=== PATIENT | male | born 1975 | race Caucasian/White ===

== ENCOUNTER → 2016-03-17 | Outpatient (CLI) | payer OTHER ==
[2016-03-17 09:44] LABS: ASPARTATE AMINO TRANSFERASE 29 IU/L (21-57); BILIRUBIN,TOTAL 0.7 mg/dL (0.3-1.2); BLOOD UREA NITROGEN 20 mg/dL (7-22); BUN/CREATININE RATIO 16.66 (6-20); CALCIUM 10.5 mg/dL (8.7-10.7); CHLORIDE 102 meq/L (98-112); CREATININE 1.2 mg/dL (0.70-1.50); EST GLOMERULAR FILTRATION > 60 (>60 ml/min/1.73m(2)); GLUCOSE 101 mg/dL (78-110); POTASSIUM 3.9 meq/L (3.8-5.2); SODIUM 137 meq/L (135-145); TOTAL PROTEIN 7.9 g/dL (6.1-8.0)
[2016-03-17 10:04] LABS: LDL CHOLESTEROL,CALCULATED 142.8 mg/dL
== END ==
LOC: LAB 09:22
PROVIDERS: ATTEND Internal Medicine
DX: E78.5 Hyperlipidemia, unspecified (principal); E03.9 Hypothyroidism, unspecified; F31.9 Bipolar disorder, unspecified; F17.210 Nicotine dependence, cigarettes, uncomplicated
CPT/HCPCS: 36415; 80053; 80061; 80178; 82550; 84443

== ENCOUNTER 2016-09-12 19:28 | Emergency (ER) | payer SELFPAY ==
[2016-09-12] MEDS ORDERED: Sodium Chloride 0.9% 1,000 ML PRIMARY IV ONE (20:01)
[2016-09-12] MEDS ORDERED: LORazepam 2 MG/1 ML VIAL IVP ONE (20:01)
[2016-09-12] MEDS ORDERED: ONDANSETRON 4 MG/2 ML VIAL IVP ONE (20:01)
[2016-09-12] MEDS ORDERED: ONDANSETRON 4 MG/2 ML VIAL ONE (20:03)
[2016-09-12] MEDS ORDERED: LORazepam 2 MG/1 ML VIAL ONE (20:04)
--- NOTE | 2016-09-12 20:07 | PDOC ---
Gen Adult / Medical Screen HPI - General Chief Complaint: Psychiatric Complaint Stated Complaint: ANIXETY Date Seen by Provider: 09/12/16 Time Seen by Provider: 20:02 Source: POSITIVE: Patient Exam Limitations: POSITIVE: No limitations Nurse's Notes Reviewed & Considered: Yes - Indicators Temperature Between 95 and 101 Degrees: Yes Respirations Between 12 and 20: Yes Blood Pressure Between 100-165 (sys) and 60-100 (singh): Yes Pulse Range Between 60-105 (100 for age > 60 years): Yes Severe Pain (Greater than 5/10 Reported): No Chest or Abdominal Pain: No Inability to Walk: No Pt Reports Active High Risk Cond. (TB/Hepatitis/HIV/Chemo): No Abnormal Mental Status: No - History of Present Illness Initial Comments: This is a 40-year-old anxious male who comes in stating he feels like his blood pressure is out of control, very anxious, with sweating. Patient here in [place] on his weeks off from his job in [place]. 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 Now with increasing anxiety, sweating, feeling of palpitations in his chest, and shortness of breath. Body Location Affected: REPORTS: Chest Timing: REPORTS: Gradual, Getting Worse Duration: Unknown Similar Symptoms Previously: Yes Recent Care Received: REPORTS: Denies Any Prior Injuries Related to Current Complaint?: No - Patient Home Medications Home Medications: Home Medications Levothyroxine Sodium 1 tab PO DAILY #30 tab 03/18/16 [place] Carbonate 2 cap PO TID #180 cap 03/18/16 Quetiapine Fumarate [Seroquel] 2 tab PO QHS #60 tab 03/18/16 Cyclobenzaprine HCl 1 tab PO TID PRN #30 tab 04/06/16 Hydrocodone/Acetaminophen [Hydrocodon-Acetaminophen 5-325] 1 tab PO Q4-6HRSPRN PRN #30 tab 04/06/16 Sertraline HCl [Zoloft] 2 tab ORAL QD #60 tab 07/28/16 Lorazepam 1 tab ORAL BID PRN #60 tab 09/09/16 - Patient Allergies Allergies/Adverse Reactions: Allergies Allergy/AdvReac Type Severity Reaction Status Date / Time nortriptyline Allergy Severe hyperventilate, Unverified 09/12/16 21:12 anxious amitriptyline HCl Allergy Intermediate NOT Unverified 09/12/16 21:12 [From Elavil] APPLICABLE fish derived Allergy Intermediate HIVES Unverified 09/12/16 21:12 bupropion HCl Allergy Unknown NOT Unverified 09/12/16 21:12 [From Wellbutrin] APPLICABLE diclofenac AdvReac Intermediate anxiety, Unverified 09/12/16 21:12 nervousness Past Medical History - heen HEENT History: Denies History Cardiovascular History: Denies History Respiratory History: Denies History Gastrointestinal History: GERD Genitourinary History: Denies History Endocrine History: Hypothyroidism Musculoskeletal History: Back Pain Prosthesis or Implant: No Neurological History: Denies History Blood Disorders: Denies History Psychiatric History: Anxiety Disorders, Bi Polar Disorder, Depression, Other ( please comment), Schizophrenia Additional Psychiatric History: AGORAPHOBIA History of Sexually Transmitted Diseases: No Cancer History: Denies History History of MDRO: No History of Other Communicable Diseases: No Alcohol Use: Heavy Substance Use Type: None, Other (please comment) Previous Surgical History: No Anesthesia Reactions: No Malignant Hyperthermia: No Significant Family History: No pertinent family hx ROS - Limitations ROS Limitations: No Limitations Constitution: REPORTS: Diaphoresis Cardiovascular: REPORTS: Chest Pain, Heart Palpitations Respiratory: REPORTS: Shortness Of Breath Neurological: REPORTS: Denies Neuro Symptoms Gastrointestinal: REPORTS: Denies GI Symptoms Endocrine: REPORTS: Denies Symptoms Musculoskeletal: REPORTS: Denies MS Symptoms Genitourinary: REPORTS: Denies Symptoms Eyes: REPORTS: Denies Symptoms ENT: REPORTS: Denies Symptoms Skin: REPORTS: Denies Skin Symptoms Lympathic: REPORTS: Denies Lympathic Symptoms Immunologic: POSITIVE: Denies Symptoms Psychiatric: POSITIVE: Anxiety Gen Adult/Medical Screen Exam - General Appearance General Appearance: POSITIVE: Alert, Cooperative, No Evidence of Trauma, Moderate Distress - HEENT HEENT: POSITIVE: Head Inspection Nml, Eyes Inspection Nml, Ears Inspection Nml, Nose Inspection Nml, Oral/Dental Inspect. Nml, Pharynx Inspect. Nml, PERRL, EOMI - Pupils Pupil Size: 4 mm: Bilateral - Neck Neck: POSITIVE: Normal Inspection, Thyroid Normal - Respiratory Respiratory: POSITIVE: No Respiratory Distress, Breath Sounds Normal, Chest Non- Tender - Cardiovascular Cardiovascular: POSITIVE: Regular Rate & Rhythm, No Murmur, No Gallop, PMI Normal - Abdomen Abdomen: Soft: (All Quadrants), Normal Bowel Sounds: (All Quadrants), Denies Tenderness: (All Quadrants), No Splenomegaly: (All Quadrants), No Hepatomegaly: (All Quadrants), No Guarding: (All Quadrants), No Rebound: (All Quadrants), No Palpable Pulse: (All Quadrants), No Palpabale Mass: (All Quadrants), No Distention: (All Quadrants), No Rigidity: (All Quadrants) - Back Back: POSITIVE: Normal Inspection - Neurological / Psychological Mental Status: POSITIVE: Other (Very anxious) Orientation: POSITIVE: Oriented x 3 - Skin Skin: POSITIVE: Normal Color, Warm, Dry, No Rash - Extremities Extremity: Non-Tender: (All Extremities), Normal ROM: (All Extremities), Normal Inspection: (All Extremities), Pelvis Stable: (All Extremities) Procedures - Laceration/Wound Repair Did patient have a laceration repair: No Gen Adlt/Medical Scrn Progress - Results Reviewed by me Xrays/CTs/US Reviewed by me: Yes Discussed with Radiologist: No Lab Results Reviewed: Yes Lab Results:: Laboratory Results 09/12/16 Range/Units 19:50 WBC 5.27 (4.8-10.8) 10^3/uL RBC 4.37 L (4.70-6.10) 10^6/uL Hgb 13.8 L (14.0-18.0) g/dL Hct 39.2 L (42.0-52.0) % MCV 89.7 (80-90) FL MCH 31.6 H (27-31) PG MCHC 35.2 (33-37) g/dL RDW Std Deviation 41.4 (39-50) fL RDW Coeff of [place] 12.8 (11.5-14.5) % Plt Count 233 (140-350) 10*3/uL MPV 9.7 (7.4-12.2) FL Immature Gran % (Auto) 0.1 (0-5) % Neut % (Auto) 49.4 L (50-80) % Lymph % (Auto) 37.2 (10-50) % [place] % (Auto) 10.1 (5-15) % Eos % (Auto) 2.7 (0-8) % Baso % (Auto) 0.4 (0-1) % Immature Gran # (Auto) 0.01 10*3/UL Neut # (Auto) 2.61 10*3/UL Lymph # (Auto) 1.96 10*3/uL [place] # (Auto) 0.53 (0.3-0.8) 10*3/UL Eos # (Auto) 0.14 10*3/UL Baso # (Auto) 0.02 10*3/UL WBC Morphology Comment Normal morphology (NORM) Plt Morphology Comment Normal morphology (NORM) RBC Morph Comment Normal morphology (NORM) Sodium 134 L (135-145) meq/L Potassium 3.6 L (3.8-5.2) meq/L Chloride 105 (98-112) meq/L Carbon Dioxide 18 L (23-33) meq/L Anion Gap 11 (5-20) BUN 17 (7-22) mg/dL Creatinine 1.2 (0.70-1.50) mg/dL Estimated GFR > 60 (>60 ml/min/1.73m(2)) BUN/Creatinine Ratio 14.16 (6-20) Glucose 92 (78-110) mg/dL Calculated Osmolality 279.0 (267-292) mOsm/kg Calcium 9.7 (8.7-10.7) mg/dL Magnesium 2.0 (1.6-2.4) mg/dL Total Bilirubin 0.6 (0.3-1.2) mg/dL AST 41 (21-57) IU/L ALT 35 (21-72) IU/L Alkaline Phosphatase 72 (38-126) IU/L Total Protein 7.6 (6.1-8.0) g/dL Albumin 4.4 (3.5-4.8) g/dL Globulin 3.2 (2.50-4.10) g/dL Albumin/Globulin Ratio 1.30 (1.3-2.0) mg/g TSH 2.54 (0.2700-4.2000) uIU/mL - Patient's Progress Pain Medication Addressed: POSITIVE: Not Applicable Re-Examine Time: 22:03 Status: POSITIVE: Improved MDM / ED Course: Patient was examined, an IV started, blood drawn and sent to the lab for studies. EKG was obtained interpreted by me showing sinus rhythm with no ST elevations. Findings: Chest x-ray was normal chest radiograph. Laboratory findings including CBC CMP unremarkable. Assessment: Anxiety presently out of medications. Plan: Discharge home follow up with primary care physician for renewal of his psych medications. - Consult Counseled: POSITIVE: Patient, RE: Lab Results, RE: Radiology Results, RE: DX, RE : Need for F/U Patient Care Time - Estimated PCT Patient Care Time (In Minutes): 30 Vital Signs - Recent Vital Signs Vital Signs: Vital Signs (Last 8 hours) Temp Pulse Resp BP Pulse Ox 09/12/16 19:30 97.3 F 65 28 H 139/99 98 - VS Reviewed Vital Signs Reviewed: Yes Discharge Clinical Impression: Anxiety Discharge Disposition: Discharged to Home Condition: Good Patient Instructions Given at Discharge: Anxiety (ED)
[2016-09-12 20:13] LABS: HEMATOCRIT 39.2 % (42.0-52.0); HEMOGLOBIN 13.8 g/dL (14.0-18.0); MEAN CORPUSCULAR HEMOGLOBIN 31.6 PG (27-31); MEAN CORPUSCULAR HGB CONC 35.2 g/dL (33-37); MEAN CORPUSCULAR VOLUME 89.7 FL (80-90); MEAN PLATELET VOLUME 9.7 FL (7.4-12.2); RED BLOOD COUNT 4.37 10^6/uL (4.70-6.10)
[2016-09-12 20:14] LABS: BASOPHILS # (AUTO) 0.02 10*3/UL; BASOPHILS % (AUTO) 0.4 % (0-1); BLOOD UREA NITROGEN 17 mg/dL (7-22); BUN/CREATININE RATIO 14.16 (6-20); CALCIUM 9.7 mg/dL (8.7-10.7); EOSINOPHILS # (AUTO) 0.14 10*3/UL; EOSINOPHILS % (AUTO) 2.7 % (0-8); EST GLOMERULAR FILTRATION > 60 (>60 ml/min/1.73m(2)); LYMPHOCYTES # (AUTO) 1.96 10*3/uL; MONOCYTES # (AUTO) 0.53 10*3/UL (0.3-0.8); MONOCYTES % (AUTO) 10.1 % (5-15); NEUTROPHILS # (AUTO) 2.61 10*3/UL; NEUTROPHILS % (AUTO) 49.4 % (50-80); PLATELET MORPHOLOGY COMMENT NORMAL MORPHOLOGY (NORM); RBC MORPHOLOGY COMMENT NORMAL MORPHOLOGY (NORM); SERUM ALBUMIN 4.4 g/dL (3.5-4.8); WBC MORPHOLOGY COMMENT NORMAL MORPHOLOGY (NORM)
[2016-09-12 21:09] VITALS: RESP 28; TEMP 97.3
--- NOTE | 2016-09-12 21:22 | EKG ---
[address] [address] Measurements Intervals [place] Rate: 61 P: 50 MT: 199 QRS: 41 QRSD: 121 T: 22 QT: 414 QTc: 417 Interpretive Statements SINUS RHYTHM MODERATE INTRAVENTRICULAR CONDUCTION DELAY [110+ ms QRS DURATION] INTERPRETATION BASED ON A DEFAULT AGE OF 40 YEARS No previous ECG available for comparison Electronically Signed On 09-13-16 07:56:32 MDT by Watson Zendejas MD [email or web address]
--- NOTE | 2016-09-13 06:57 | DI ---
PA /LATERAL CHEST X-RAY, 09/12/2016 9:21 PM : Clinical History: Right-sided chest pain Previous Exam: 08/21/2011. There is no acute soft tissue or bony abnormality. Heart size is normal. Lungs are clear. Mediastinal structures are normal. There are no pulmonary nodules. Reading: Normal chest x-ray. There has been no significant interval change.
== END 2016-09-12 22:37 | disposition home or self-care (01) ==
LOC: ER 19:28
DX: F41.9 Anxiety disorder, unspecified (principal); R07.9 Chest pain, unspecified; R00.2 Palpitations; R06.02 Shortness of breath
CPT/HCPCS: 71020; 80053; 80178; 83735; 84443; 85025; 93005; 93010; 96361; 96374; 96375; 99283 ×2; J2060; J2405; J7030

== ENCOUNTER → 2016-09-15 | Outpatient (CLI) | payer OTHER ==
[2016-09-15 08:23] LABS: BLOOD UREA NITROGEN 21 mg/dL (7-22); CALCIUM 9.8 mg/dL (8.7-10.7); EST GLOMERULAR FILTRATION > 60 (>60 ml/min/1.73m(2)); SERUM ALBUMIN 4.6 g/dL (3.5-4.8)
== END ==
LOC: LAB 07:40
PROVIDERS: ATTEND Internal Medicine
DX: E03.9 Hypothyroidism, unspecified (principal); D64.9 Anemia, unspecified; F31.9 Bipolar disorder, unspecified; F17.200 Nicotine dependence, unspecified, uncomplicated
CPT/HCPCS: 36415; 80053; 80178; 82728; 83540; 83550; 84443; G0463

== ENCOUNTER 2016-09-25 16:11 | Emergency (ER) | payer OTHER ==
[2016-09-25 17:23] VITALS: RESP 16; TEMP 97.9
--- NOTE | 2016-09-25 17:43 | PDOC ---
Foot / Ankle Injury - General Chief Complaint: Lower Extremity Problem/Injury Stated Complaint: twisted L ankle Date Seen by Provider: 09/25/16 Time Seen by Provider: 16:15 Source: POSITIVE: Patient Exam Limitations: POSITIVE: No limitations Nurse's Notes Reviewed & Considered: Yes - History of Present Illness Initial Comments: The patient is a 40-year-old male. About 20 minutes [employer] he jumped down 2 stairs and when he he landed he forced his left ankle into inversion. He complains of pain to his ankle, primarily the lateral aspect. He has swelling over the lateral and medial aspects of the ankle. He states he has not been able ambulate on his left foot since his injury. No sensory or motor symptoms. Have you received a tetanus shot in the past 10 years?: Yes Location: Left Ankle Timing: REPORTS: Abrupt Duration: 1/2 hour Severity: Moderate Quality: REPORTS: "Pain" Context: REPORTS: Twist Modifying Factors: REPORTS: Other (exacerbated by trying to bear weight on his left foot) Associated Symptoms: REPORTS: Swelling. DENIES: Tingling Distally, Numbness Distally, Snapping Sensation, Popping Sensation, Other Any Prior Injuries Related to Current Complaint?: No - Patient Allergies Allergies/Adverse Reactions: Allergies Allergy/AdvReac Type Severity Reaction Status Date / Time nortriptyline Allergy Severe hyperventilate, Verified 09/25/16 16:36 anxious amitriptyline HCl Allergy Intermediate NOT Verified 09/25/16 16:36 [From Elavil] APPLICABLE fish derived Allergy Intermediate HIVES Verified 09/25/16 16:36 bupropion HCl Allergy Unknown NOT Verified 09/25/16 16:36 [From Wellbutrin] APPLICABLE diclofenac AdvReac Intermediate anxiety, Verified 09/25/16 16:36 nervousness - Patient Home Medications Home Medications: Home Medications Levothyroxine Sodium 1 tab PO DAILY #30 tab 09/15/16 [place] Carbonate 2 cap PO TID #180 cap 09/15/16 Lorazepam 1 tab ORAL BID PRN #60 tab 09/15/16 Quetiapine Fumarate [Seroquel] 2 tab PO QHS #60 tab 09/15/16 Sertraline HCl [Zoloft] 2 tab ORAL QD #60 tab 09/15/16 HYDROcodone/APAP 10/325 Tab [[place] 10/325 Tab] 1 tab PO Q6H PRN #20 tab Past Medical History - heen HEENT History: Denies History Cardiovascular History: Denies History Respiratory History: Denies History Gastrointestinal History: GERD Genitourinary History: Denies History Endocrine History: Hypothyroidism Musculoskeletal History: Back Pain Prosthesis or Implant: No Neurological History: Denies History Blood Disorders: Denies History Psychiatric History: Anxiety Disorders, Bi Polar Disorder, Depression, Other ( please comment), Schizophrenia Additional Psychiatric History: AGORAPHOBIA History of Sexually Transmitted Diseases: No Cancer History: Denies History In Past Year Been Physically Harmed or Verbally Threatened: No History of MDRO: No History of Other Communicable Diseases: No Tobacco Use: Never Smoker Alcohol Use: Heavy Substance Use Type: None, Other (please comment) Previous Surgical History: No Anesthesia Reactions: No Malignant Hyperthermia: No Significant Family History: No pertinent family hx Past Medical History Reviewed: Reviewed - No Changes ROS - Limitations ROS Limitations: No Limitations Constitution: REPORTS: Denies Symptoms Cardiovascular: REPORTS: Denies Cardiac Symptoms Respiratory: REPORTS: Denies Resp Symptoms Neurological: REPORTS: Denies Neuro Symptoms Gastrointestinal: REPORTS: Denies GI Symptoms Endocrine: REPORTS: Denies Symptoms Musculoskeletal: REPORTS: Joint Pain (Left ankle), Lower Extremity Swelling ( Swelling to lateral and medial aspects of left ankle), Recent Injury (As above) Genitourinary: REPORTS: Denies Symptoms Eyes: REPORTS: Denies Symptoms ENT: REPORTS: Denies Symptoms Skin: REPORTS: Denies Skin Symptoms Lympathic: REPORTS: Denies Lympathic Symptoms Immunologic: POSITIVE: Denies Symptoms Psychiatric: POSITIVE: Denies Psych Symptoms Foot / Ankle Exam - General Appearance General Appearance: POSITIVE: Alert, Cooperative, No Acute Distress. NEGATIVE: No Evidence of Trauma - Extremities Foot: POSITIVE: Normal Inspection, Non-Tender Ankle: POSITIVE: Normal ROM, Stable, Soft-Tissue Tenderness, Bony Tenderness, Swelling, See Diagram. NEGATIVE: Ecchymosis, Limited ROM, Deformity, Ligamentous Instability Gait: POSITIVE: Unable to Bear Weight Neuro: POSITIVE: Sensation Normal, Motor Normal Vascular: POSITIVE: No Vascular Compromise, Full Pulses, Equal Pulses Tendons: POSITIVE: Tendon Function Normal Skin: POSITIVE: Warm, Dry - Neck / Back Neck / Back: Normal Inspection - Respiratory / CVS Respiratory / CVS: POSITIVE: Chest Non-Tender, No Respiratory Distress, Heart Sounds Normal, Regular Rate/Rhythm, Breath Sounds Normal Peripheral Pulses: Radial (R): 2+, Radial (L): 2+, Dorsalis-pedis (R): 2+, Dorsalis-pedis (L): 2+ Images - Lower Extremities Lower Extremities: 1 - Some swelling and discomfort/pain on palpation 2 - Swelling and discomfort on palpation Procedures - Splinting Time Splint Applied: 16:40 Location: Cam Walker left lower extremity Pre-Proc Neuro Vasc Exam: Normal Splint Type: CAM Walker, Crutches Splint Form: Short Extremity Applied By:: Nurse Post-Proc Neuro Vasc Exam: Normal Foot / Ankle Progress - Results Reviewed by me Pain Medication Addressed: POSITIVE: Yes (hydrocodone/APAP one every 6 hours as necessary) School/Work Release Addressed: POSITIVE: Not Applicable Xrays/CTs/US Reviewed by me: Yes Discussed with Radiologist: No Radiology Results: POSITIVE: Left, Ankle Radiology Findings: X-ray of left ankle shows no definite fractures or dislocations. There is edema bilaterally. There is a small calcification distal to the tip of the lateral malleolus which is well eburnated and probably does not represent a small avulsion fracture - Patient's Progress Re-Examine Time:: 16:41 Re-Examine Comment: Cam Walker placed and patient instructed in crutch walking. Some relief of pain with Cam Walker. Status: POSITIVE: Improved, Re-Examined - Consult Counseled: POSITIVE: Patient, RE: Radiology Results, RE: DX, RE: Need for F/U Patient Care Time - Estimated PCT Patient Care Time (In Minutes): 23 Vital Signs - Recent Vital Signs Vital Signs: Vital Signs (Last 8 hours) Temp Pulse Resp BP Pulse Ox 09/25/16 16:11 97.9 F 83 16 132/93 95 - VS Reviewed Vital Signs Reviewed: Yes Discharge Clinical Impression: Ankle pain, Sprain of ankle Discharge Disposition: Discharged to Home Prescriptions / Orders: HYDROcodone/APAP 10/325 Tab [[place] 10/325 Tab] 1 tab PO Q6H PRN #20 tab PRN Reason: Pain Patient Instructions Given at Discharge: Ankle Sprain (ED) Additional Instructions: I see no definite fractures on the x-ray of your ankle. I believe you have a significant sprain, although an occult fracture cannot be definitely ruled out. Please wear cam walker and use crutches and bear no weight on your left foot for 5 or 6 days. Then try bearing weight using your cam walker. Use cam walker for about 10 days from this time. Follow-up with your primary care provider or in the orthopedic clinic if you're not able to bear weight comfortably in 10-14 days. Return here anytime if condition worsens in any way. Hydrocodone/APAP, one every 6 hours as necessary for pain. Elevate leg. Cool compresses today. Follow Up With: NONE,NONE [Primary Care Provider] - (Instructions as above. Return here anytime if condition worsens. Follow-up with your primary care provider or in the orthopedic clinic.)
--- NOTE | 2016-09-28 06:31 | DI ---
XR ANKLE COMPLETE MIN 3VW,09/25/2016 4:27 PM: Clinical History: Following the stairs with swelling and pain. Previous Exam: None at this facility. Findings: Multiple views of the left ankle are obtained, and demonstrate an avulsion fracture of the medial mal leolus. There is also a small avulsion fracture involving the anterior margin of the left distal tibi a. Surrounding soft tissue swelling is noted. There is a and ankle joint effusion. Impression: Avulsion fractures of the medial malleolus and the anterior margin of the distal tibia. These are of unknown chronicity.
== END 2016-09-25 17:08 | disposition home or self-care (01) ==
LOC: ER 16:11
DX: S93.402A Sprain of unspecified ligament of left ankle, initial encounter (principal); X50.1XXA Overexertion from prolonged static or awkward postures, initial encounter
CPT/HCPCS: 73610; 99282

== ENCOUNTER 2018-12-22 09:31 | Observation (INO) ==
[2018-12-22 10:07] LABS: BASOPHILS # (AUTO) 0.02 10*3/UL; BASOPHILS % (AUTO) 0.6 % (0-1); EOSINOPHILS # (AUTO) 0.03 10*3/UL; EOSINOPHILS % (AUTO) 0.9 % (0-8); Hematocrit [HCT] 43.8 % (42.0-52.0); Hemoglobin [HGB] 15.1 g/dL (14.0-18.0); LYMPHOCYTES # (AUTO) 0.99 10*3/uL; MEAN CORPUSCULAR HGB CONC 34.5 g/dL (33-37); MEAN CORPUSCULAR VOLUME 92.6 FL (80-90); MEAN PLATELET VOLUME 8.9 FL (7.4-12.2); MONOCYTES % (AUTO) 6.1 % (5-15); NEUTROPHILS # (AUTO) 2.02 10*3/UL; NEUTROPHILS % (AUTO) 61.4 % (50-80); RED BLOOD COUNT 4.73 10^6/uL (4.70-6.10)
[2018-12-22 10:20] LABS: PLATELET MORPHOLOGY COMMENT NORMAL MORPHOLOGY (NORM); RBC MORPHOLOGY COMMENT NORMAL MORPHOLOGY (NORM); WBC MORPHOLOGY COMMENT NORMAL MORPHOLOGY (NORM)
[2018-12-22 10:34] LABS: BLOOD UREA NITROGEN 9 mg/dL (7-22); BUN/CREATININE RATIO 8.18 (6-20); SALICYLATE < 1.0 mg/dl (0-20); SERUM ALBUMIN 4.4 g/dL (3.5-4.8)
[2018-12-22 10:49] LABS: BILIRUBIN,URINE NEGATIVE (NEG); CLARITY,URINE CLEAR (CLEAR); COLOR,URINE YELLOW (Y); GLUCOSE, URINE (UA) NEGATIVE (NEG); OCCULT BLOOD,URINE NEGATIVE (NEG); PH,URINE 5.5 (5.0-8.5); PROTEIN,URINE NEGATIVE (NEG); UROBILINOGEN,URINE 0.2 EU/dL (0.2)
[2018-12-22 10:51] LABS: URINE SAMPLE TYPE CLEAN CATCH URINE; URINE SPECIFIC GRAVITY - MAN 1.005
[2018-12-22 12:37] LABS: AMPHETAMINE SCREEN NEGATIVE (NEG); CANNABINOID SCREEN,URINE POSITIVE (NEG); COCAINE SCREEN NEGATIVE (NEG); METHADONE URINE SCREEN NEGATIVE (NEG); METHAMPHETAMINES SCREEN,URINE NEGATIVE (NEG); OPIATE SCREEN,URINE NEGATIVE (NEG)
[2018-12-22] MEDS ORDERED: ClonazePAM Tab 1 MG TABLET PO ONE (13:13)
[2018-12-22] MEDS ORDERED: MAG HYDROX/AL HYDROX/SIMETH 30 ML SUSP PO PRN (16:21)
[2018-12-22] MEDS ORDERED: Sodium Chloride 0.9% 1,000 ML, Magnesium Sulfate 2gm (Premix) 50 ML with Multivitamin I... IV SCH ×5 (16:21)
[2018-12-22] MEDS ORDERED: NICOTINE 21 MG /DAY PATCH TRANSDERM SCH (16:21)
[2018-12-22] MEDS ORDERED: LEVOTHYROXINE SODIUM 175 MCG PO SCH (16:21)
[2018-12-22] MEDS ORDERED: LIDOCAINE W/ SODIUM BICARB 0.5 ML SYR SUBD PRN (16:21)
[2018-12-22] MEDS ORDERED: THIAMINE 100 MG/1 ML - 2 ML IM SCH (16:21)
[2018-12-22] MEDS ORDERED: ONDANSETRON 4 MG/2 ML VIAL IVP PRN (16:21)
[2018-12-22] MEDS ORDERED: LORazepam Inj(ETOH withdrawal) 2 MG/ML VIAL IVP PRN (16:21)
[2018-12-22] MEDS ORDERED: Loperamide Tab 2 MG TABLET PO PRN (16:21)
[2018-12-22] MEDS ORDERED: ACETAMINOPHEN 500 MG TABLET PO PRN (16:21)
[2018-12-22] MEDS ORDERED: MAGNESIUM 400 MG/5 ML - 30 ML (MILK OF MAGNESIA) PO PRN (16:21)
[2018-12-22] MEDS ORDERED: ENOXAPARIN SODIUM 40 MG/0.4 ML SYRINGE SUBCUT SCH (16:21)
[2018-12-22] MEDS ORDERED: ZOLPIDEM 10 MG TABLET PO PRN (17:40)
[2018-12-22] MEDS ORDERED: Sertraline Tab 100 MG TAB PO SCH (17:45)
[2018-12-22] MEDS: MAGNESIUM OXIDE 400 MG TABLET PO SCH ×2 (17:49→21:15)
[2018-12-22] MEDS: LORazepam Inj(ETOH withdrawal) 2 MG/ML VIAL IVP PRN ×2 (17:50→21:15)
[2018-12-22] MEDS ORDERED: Sodium Chloride 0.9% 1,000 ML with Multivitamin Inj 10 ML, Thiamine Inj 100 MG, Folic A... IV SCH ×5 (19:30)
[2018-12-22] MEDS ORDERED: QUETIAPINE FUMARATE 800 MG PO SCH (21:00)
[2018-12-22 21:03] VITALS: RESP 18; TEMP 98.1; O2SAT 94
[2018-12-22 21:14] VITALS: BP 122/94
[2018-12-25] MEDS ORDERED: Multivitamin Tab 1 TAB PO SCH (09:00)
== END 2018-12-22 22:07 ==
LOC: MED/SURG 09:31 → ER 09:31 → MED/SURG 16:55
PROVIDERS: ADMIT Internal Medicine; ATTEND Internal Medicine